=== PATIENT | male | born 1985 | race Caucasian/White ===

== ENCOUNTER 2024-07-31 10:22 | Emergency (ER) | payer OTHER, SELFPAY ==
[2024-07-31 10:45] VITALS: BP 146/83; PULSE 113; RESP 16; TEMP 36.9; O2SAT 98; BMI 28.5
[2024-07-31] MEDS: ONDANSETRON 4 MG ODT SL (11:28)
[2024-07-31 11:34] LABS: Influenza A - CEPHEID Flu A POSITIVE (NEGATIVE); Influenza B - CEPHEID Flu B NEGATIVE (NEGATIVE); Respiratory Syncytial Virus Negative (Negative)
[2024-07-31 11:50] LABS: COVID-19 CEPHEID 4-PLEX PCR Negative (Negative)
--- NOTE | 2024-07-31 12:37 | ED_ITS ---
HPI - URI/Sore Throat General Chief Complaint: Upper Respiratory Symptoms Stated Complaint: fever 105 Time Seen by Provider: 07/31/24 11:16 History of Present Illness HPI Narrative: 39-year-old male presents to the ED with 2 days of flu-like symptoms. Patient complains of fever, chills, myalgias, nasal congestion, cough, nausea. No chest pain, shortness of breath, vomiting, diarrhea, abdominal pain. Related Data Allergies Allergy/AdvReac Type Severity Reaction Status Date / Time No Known Drug Allergies Allergy Verified 07/31/24 11:28 Review of Systems Constitutional Constitutional: Reports body ache(s), Reports chills, Denies fatigue, Reports fever(s), Denies frequent falls, Denies lethargy and Denies weakness Eyes Eyes: Denies change in vision, Denies eye discharge, Denies irritation and Denies loss of vision ENT Ears, Nose, Mouth, and Throat: Denies change in voice, Denies dizziness, Reports nasal congestion, Denies neck pain, Denies sore throat and Denies throat swelling Cardiovascular Cardiovascular: Denies chest pain, Denies irregular heart rhythm, Denies lightheadedness, Denies palpitations, Denies dyspnea, Denies dyspnea on exertion and Denies orthopnea Respiratory Respiratory: Reports cough, Denies dyspnea, Denies dyspnea on exertion and Denies wheezing Gastrointestinal Gastrointestinal: Denies abdominal pain, Denies change in bowel habits, Denies diarrhea, Reports nausea and Denies vomiting Musculoskeletal Musculoskeletal: Denies neck pain and Denies numbness Integumentary/Breasts Skin/Breast: Denies pruritus, Denies erythema, Denies rash and Denies wounds Neurologic Neurologic: Denies behavioral changes, Denies confusion, Denies dizziness, Denies frequent falls, Denies loss of vision, Denies numbness and Denies weakness Psychiatric Psychiatric: Denies anxiety, Denies behavioral changes, Denies confusion, Denies depression, Denies homicidal ideation and Denies suicidal ideation Endocrine Endocrine: Denies fatigue, Denies flushing and Denies palpitations Hematologic/Lymphatic Hematologic/Lymphatic: Denies easy bruising Allergic/Immunologic Allergic/Immunologic: Denies urticaria, Denies throat swelling and Denies wheezing Exam Narrative Exam Narrative: Const General:?cooperative, healthy appearing and comfortable [facility] Head:?normal to inspection Ears:?hearing grossly normal bilaterally Nose:?external nose normal Face and sinus:?normal facial exam and sinuses nontender Mouth:?oral mucosae normal Throat:?posterior oropharynx normal Eyes General:?appearance normal, both eyes and all related structures Neck Neck:?normal visual inspection and no lymphadenopathy noted Resp Effort & Inspection:?normal respiratory effort Auscultation:?clear to auscultation bilaterally Cardio Rate:?regular rate Rhythm:?regular rhythm Neuro General:?patient alert, patient awake and patient oriented x3 Initial Vital Signs Initial Vital Signs: Vital Signs Temperature 98.4 F 07/31/24 10:45 Pulse Rate 113 H 07/31/24 10:45 Respiratory Rate 16 07/31/24 10:45 Blood Pressure 146/83 H 07/31/24 10:45 Pulse Oximetry 98 07/31/24 10:45 Oxygen Delivery Method Room Air 07/31/24 10:45 Course Orders Ordered: Discontinued Medications Ondansetron HCl (Ondansetron 4 Mg Odt) 4 mg SL NOW PRN PRN Reason: Nausea And Vomiting Last Admin: 07/31/24 11:28 Dose: 4 mg Documented By: CATRACHITO Vital Signs Vital signs: Vital Signs - 8 hr 07/31/24 10:45 Temperature 98.4 F Pulse Rate 113 H Respiratory Rate 16 Blood Pressure 146/83 H Pulse Oximetry 98 Oxygen Delivery Method Room Air MDM - URI/Sore Throat Lab Data Labs: Lab Results 07/31/24 Range/Units 10:48 SARS-CoV-2 (PCR) Negative (Negative) Influenza A (RT-PCR) Flu a positive H (NEGATIVE) Influenza B (RT-PCR) Flu b negative (NEGATIVE) RSV (PCR) Negative (Negative) [facility] Narrative Medical decision making narrative: 39-year-old male presents to the ED with 2 days of flu-like symptoms. Patient is positive for influenza A. Patient was given a dose of Zofran. Recommend supportive measures. Recommend good hydration. ED return precautions discussed with patient. Patient verbalized understanding. Medical records reviewed: Yes Discharge Plan Departure Patient Disposition: Home Clinical Impression: Influenza A Instructions: DI for Influenza -- Adult Activity Restrictions/Additional Instructions: You were evaluated in the ED today for a fever and cough. You tested positive for influenza A. Common symptoms include fever, chills, body aches, nausea, vomiting, diarrhea. You may take Tylenol, ibuprofen, [id number] cough and cold remedies for comfort. Please continue to drink plenty of water. Return to the ED if you have worsening symptoms such as chest pain, shortness of breath, uncontrollable vomiting. Stand Alone Forms: Patient Portal/API/Survey
[2024-07-31 12:52] VITALS: BP 124/75; PULSE 110; RESP 18; TEMP 38.2; O2SAT 98
== END 2024-07-31 12:52 | disposition home or self-care (01) ==
PROVIDERS: Emergency Medicine; Emergency Provider Student in an Organized Health Care Education/Training Program
DX: J10.1 Influenza due to other identified influenza virus with other respiratory manifestations (principal); R50.9 Fever, unspecified
CPT/HCPCS: 0241U; 99283

== ENCOUNTER 2024-08-02 08:44 | Emergency (ER) | payer OTHER, SELFPAY ==
[2024-08-02 09:10] VITALS: BP 137/76; PULSE 88; RESP 19; TEMP 37.4; O2SAT 98; BMI 29.1
--- NOTE | 2024-08-02 09:30 | DI.RAD.S_ITS ---
PROCEDURE: XR CHEST 2V INDICATIONS: cough, TECHNIQUE: 2 views of the chest were acquired. COMPARISON: None. FINDINGS: Surgical changes and devices: None. Lungs and pleura: Lungs are clear. No pleural effusions or pneumothorax. Mediastinum: Mediastinal contours are normal. Heart size is normal. Bones and chest wall: No suspicious bony abnormalities. Soft tissues appear unremarkable. IMPRESSION: No acute cardiopulmonary pathology. Dictated by: Darrian Arrington M.D. on 08/02/2024 at 10:00 Approved by: Darrian Arrington M.D. on 08/02/2024 at 10:00
[2024-08-02 09:52] LABS: Strep Grp A by PCR Rapid Positive (Negative)
--- NOTE | 2024-08-02 11:25 | ED.EAR ---
HPI - Ear Problem <Preethi Fraga PA-C - Last Filed: 08/02/24 12:14> General Chief complaint: Ear Stated complaint: Ruptured Ear drum Time Seen by Provider: 08/02/24 11:22 Source: patient Mode of arrival: Family Vehicle History of Present Illness HPI Narrative: Mr. Dominguez is a very pleasant 39-year-old male with no reported past medical history who presents to the emergency department for left ear pain and drainage since yesterday. Patient states on Wednesday he tested positive for influenza A. He has been taking ibuprofen, acetaminophen and Flonase which has been helping his symptoms however yesterday he started developing some very severe facial sinus pressure and headache. He developed severe left ear pain and then suddenly the pain became 9/10 and bloody fluid started draining from the ear. The pain and pressure improved slightly after this acute severe pain. He is concerned that his eardrum ruptured because he has had continuing drainage since then. He also admits continuing fevers, sore throat, mild cough. Some nausea but no vomiting or diarrhea. He does have 3 children with recent flu and strepinfections. Related Data Previous Rx's Medication Instructions Recorded amoxicillin 875 mg-potassium 1 tab PO Q12H 10 days #20 tabs 08/02/24 clavulanate 125 mg tablet ondansetron 4 mg disintegrating 4 mg PO Q8H PRN nausea and 08/02/24 tablet vomiting #14 tabs Allergies Allergy/AdvReac Type Severity Reaction Status Date / Time No Known Drug Allergies Allergy Verified 08/02/24 09:33 Review of Systems <Preethi Fraga PA-C - Last Filed: 08/02/24 12:14> Review of Systems ROS Unobtainable: All systems reviewed & are unremarkable except as noted in HPI and below Patient History <Preethi Fraga PA-C - Last Filed: 08/02/24 12:14> Social History Smoking Status: Never smoker Smoking Status: Never smoker Exam <Preethi Fraga PA-C - Last Filed: 08/02/24 12:14> Narrative Exam Narrative: GENERAL: 39 year old patient appears stated age. Well-developed patient, in no acute distress. HEAD: Atraumatic. Normocephalic. EYES: No scleral icterus. No injection or drainage. ENT: Nose without bleeding, purulent drainage. Throat with posterior oropharyngeal erythema, mild BL tonsillar hypertrophy, NO exudate. Airway patent, uvula midline. Right ear canal and TM within normal limits. Left canal with clear/ yellow blood-tinged fluid in the canal obstructing view of TM. No mastoid tenderness or pain with palpation of the pinna. No erythema of the canal itself. NECK: Trachea midline. Cervical ROM intact. CARDIOVASCULAR: Regular rate and rhythm. RESPIRATORY: Nonlabored respirations. Speaking in clear, full sentences. Clear to auscultation. Breath sounds equal bilaterally. No wheezes, rales, or rhonchi. GASTROINTESTINAL: Abdomen soft, non-tender, nondistended. NEURO: AOx3. Clear speech. Moves all 4 extremities appropriately. SKIN: No rash or erythema of visible areas Initial Vital Signs Initial Vital Signs: Vital Signs Temperature 99.4 F 08/02/24 09:10 Pulse Rate 88 08/02/24 09:10 Respiratory Rate 19 08/02/24 09:10 Blood Pressure 137/76 08/02/24 09:10 Pulse Oximetry 98 08/02/24 09:10 Oxygen Delivery Method Room Air 08/02/24 09:10 <Mary Sloan DO - Last Filed: 08/02/24 18:13> Initial Vital Signs Initial Vital Signs: Vital Signs Temperature 99.4 F 08/02/24 09:10 Pulse Rate 88 08/02/24 09:10 Respiratory Rate 19 08/02/24 09:10 Blood Pressure 137/76 08/02/24 09:10 Pulse Oximetry 98 08/02/24 09:10 Oxygen Delivery Method Room Air 08/02/24 09:10 Course <Preethi Fraga PA-C - Last Filed: 08/02/24 12:14> Orders Ordered: ED Orders 08/02/24 09:30 XR chest 2V Stat 08/02/24 09:33 Strep Grp A by PCR Rapid Stat Strep Screen Stat Vital Signs Vital signs: Vital Signs - 8 hr 08/02/24 12:17 Temperature 101.5 F H Pulse Rate 92 H Respiratory Rate 16 Blood Pressure 140/86 Pulse Oximetry 100 Oxygen Delivery Method Room Air <DO Fred Cummings Last Filed: 08/02/24 18:13> Orders Ordered: ED Orders 08/02/24 09:30 XR chest 2V Stat 08/02/24 09:33 Strep Grp A by PCR Rapid Stat Strep Screen Stat Vital Signs Vital signs: Vital Signs - 8 hr 08/02/24 12:17 Temperature 101.5 F H Pulse Rate 92 H Respiratory Rate 16 Blood Pressure 140/86 Pulse Oximetry 100 Oxygen Delivery Method Room Air Medical Decision Making <Preethi Fraga PA-C - Last Filed: 08/02/24 12:14> Medical Records Medical records reviewed: Yes I reviewed the patient's medical records. Lab Data Labs: Lab Results 08/02/24 Range/Units 09:33 Group A Strep (PCR) Positive H (Negative) Imaging Data Chest x-ray: My Impression: PROCEDURE: XR CHEST 2V INDICATIONS: cough, TECHNIQUE: 2 views of the chest were acquired. COMPARISON: None. FINDINGS: Surgical changes and devices: None. Lungs and pleura: Lungs are clear. No pleural effusions or pneumothorax. Mediastinum: Mediastinal contours are normal. Heart size is normal. Bones and chest wall: No suspicious bony abnormalities. Soft tissues appear unremarkable. IMPRESSION: No acute cardiopulmonary pathology. MDM Narrative Medical decision making narrative: 39-year-old male with no reported past medical history who presents to the emergency department for left ear pain and drainage since yesterday. Differential diagnosis includes but isn't limited to viral syndrome, acute otitis media with tympanic membrane rupture, acute otitis externa, strep pharyngitis, sinusitis, etc. On exam the patient is in no acute distress, nontoxic appearing, vital signs appropriate. He is posterior oropharyngeal erythema however uvula is midline nose are no exudates. Right ear exam normal. Left ear exam reveals clear/yellow blood-tinged fluid in the canal, unable to fully clear out all the fluid, consistent with ruptured tympanic membrane. Chest x-ray and strep swab were obtained in triage revealing negative chest x-ray and strep swab positive. Due to patient's positive strep pharyngitis in addition to left acute otitis media with rupture, we will treat with Augmentin b.i.d. times 10 days. We will provide patient with script for Zofran for nausea. Discussed the importance of avoiding submerging head under water, avoid putting things in ear. we will provide patient with ENT follow up. His fever did increased during his ED stay however he states he would prefer to take his own Tylenol and ibuprofen at home which I am agreeable to. Recommended rest, hydration, ibuprofen / Tylenol, complete full course of antibiotics. Augmentin and Zofran sent to pharmacy of choice.ED return precautions discussed. Patient verbalized understanding of all information he is stable for discharge home. <Mary Morilloaleksandra, DO - Last Filed: 08/02/24 18:13> Lab Data Labs: Lab Results 08/02/24 Range/Units 09:33 Group A Strep (PCR) Positive H (Negative) Discharge Plan Departure Patient Disposition: Home Clinical Impression: Acute streptococcal pharyngitis Acute suppurative otitis media of left ear with spontaneous rupture of ear drum Qualifiers: Recurrence: non-recurrent Qualified Code(s): H66.012 - Acute suppurative otitis media with spontaneous rupture of ear drum, left ear Instructions: DI for Tympanic Membrane Perforation-Adult Activity Restrictions/Additional Instructions: Dear Alberto, Thank you for coming to the emergency department. Today you tested positive for strep throat and you also have a left ear infection with tympanic membrane perforation. Please complete the full 10 day course of antibiotics, 3 your toothbrush away after 24 hours, continue using ibuprofen and acetaminophen if needed, increase fluids, and follow up with [facility] (Dr. Tatiana Rebollar) for further evaluation. Please avoid putting anything into your left ear or submerging your head under water. Please return to the emergency department if you develop any new or worsening symptoms, symptoms do not improve after 48-72 hours, severe pain, or other concerns. Please follow up with your primary care doctor within the next 2-3 days for ER follow-up. (If you do not have a PCP you can call [phone]. to schedule an appointment with an [facility] Primary Care Provider) IF YOU DEVELOP ANY NEW OR WORSENING SYMPTOMS, RETURN TO THE ER! Please read the attached instructions, they highlight more specific treatments and interventions for you at home. Thank you for letting me participate in your care, Preethi Fraga PA-C Prescriptions: New amoxicillin-pot clavulanate 875-125 mg tablet 1 tab PO Q12H 10 Days Qty: 20 0RF ondansetron 4 mg tablet,disintegrating 4 mg PO Q8H PRN (Reason: nausea and vomiting) Qty: 14 0RF Referrals: ProviderJuan [Primary Care Provider] - Stand Alone Forms: Patient Portal/API/Survey, Work Release Note ED Sign-out <Mary Sloan DO - Last Filed: 08/02/24 18:13> Cosign ED Attending Cosignature Attestation: I was available for consultation.
[2024-08-02 12:17] VITALS: BP 140/86; PULSE 92; RESP 16; TEMP 38.6; O2SAT 100
--- NOTE | 2024-08-02 12:19 | PC.NURSE ---
left ear pain; w/ bloody drainage. congestion in nose. Pt states he was dx with flu a earlier this week; pt febrile at home.
== END 2024-08-02 12:21 | disposition home or self-care (01) ==
PROVIDERS: Emergency Medicine; Emergency Provider Physician Assistant
DX: H66.012 Acute suppurative otitis media with spontaneous rupture of ear drum, left ear (principal); J02.0 Streptococcal pharyngitis; R05.9 Cough, unspecified
CPT/HCPCS: 71046; 87081; 87147; 87651; 99281; 99283